=== PATIENT | male | born 1980 | race African-American/Black ===

== ENCOUNTER 2016-09-13 02:06 | Emergency (ER) | payer OTHER ==
[~2016-09-13] VITALS: Ht 177.8 cm; Wt 77.6 kg
[2016-09-13] MEDS ORDERED: IBUPROFEN 800800 M1 PO (02:15)
[2016-09-13] MEDS ORDERED: CYCLOBENZAPRINE5 MG PO (02:15)
[2016-09-13] MEDS ORDERED: NORCO 5-325 TA1 EACH PO (02:49)
[2016-09-13] MEDS ORDERED: NAPROSYN500 MG PO (02:49)
[2016-09-13] MEDS ORDERED: LIORESAL 10 MG10 MG PO (02:49)
[2016-09-13 03:19] VITALS: BP 181/115
== END 2016-09-13 03:19 | disposition home or self-care (01) ==
LOC: ER 02:06
DX: S73.192A Other sprain of left hip, initial encounter (principal); F17.210 Nicotine dependence, cigarettes, uncomplicated; F10.99 Alcohol use, unspecified with unspecified alcohol-induced disorder; F12.10 Cannabis abuse, uncomplicated